=== PATIENT | male | born 1975 | race Caucasian/White ===

== ENCOUNTER → 2018-01-21 | Outpatient (CLI) | payer SELFPAY ==
[~2018-01-21] MED LIST: FLEXERIL5 MG PO; HYDROCODON-ACE1 EAC7 PO; IBUPROFEN600 MG PO; NAPROSYN500 MG PO; TYLENOL WITH C1 EACH PO
== END | disposition home or self-care (01) ==
LOC: CDC 10:20
DX: Z01.810 Encounter for preprocedural cardiovascular examination (principal); K40.91 Unilateral inguinal hernia, without obstruction or gangrene, recurrent
CPT/HCPCS: 93000

== ENCOUNTER 2018-02-01 09:26 | Day surgery (SDC) | payer OTHER ==
[~2018-02-01] VITALS: Ht 177.8 cm; Wt 79.1 kg
[~2018-02-01 09:26] MED LIST changes: +MOTRIN IB200 MG PO; +TYLENOL EXTRA500 MG PO
[2018-02-01 10:27] VITALS: BP 119/79
[2018-02-01 13:05] LABS: BENZODIAZEPINES, URINE SCREEN Negative (200 ng/mL)
[2018-02-01 16:50] VITALS: BP 129/80
[2018-02-01] MEDS ORDERED: HYDROCODON-ACE1 EAC7 PO (17:15)
[2018-02-01 17:43] VITALS: BP 130/80
== END 2018-02-01 17:47 | disposition home or self-care (01) ==
LOC: SDC 09:26
PROVIDERS: Student in an Organized Health Care Education/Training Program
PROC: 0YU54JZ Supplement Right Inguinal Region with Synthetic Substitute, Percutaneous Endoscopic Approach (ICD-10-PCS; principal; 2018-02-01)
DX: K40.91 Unilateral inguinal hernia, without obstruction or gangrene, recurrent (principal); B18.2 Chronic viral hepatitis C; E78.5 Hyperlipidemia, unspecified; R56.9 Unspecified convulsions; F32.9 Major depressive disorder, single episode, unspecified; F19.21 Other psychoactive substance dependence, in remission; Z72.0 Tobacco use; Z82.49 Family history of ischemic heart disease and other diseases of the circulatory system; Z81.8 Family history of other mental and behavioral disorders; Z83.1 Family history of other infectious and parasitic diseases
CPT/HCPCS: 80306 90; C1781; J0131; J0690; J1100; J1170; J1885; J2250; J2405; J2710; J2795; J3010; S0020

== ENCOUNTER 2018-02-15 13:40 | Inpatient (IN) | payer OTHER ==
[~2018-02-15] VITALS: Ht 177.8 cm; Wt 75.9 kg
[2018-02-15 14:10] LABS: HEMOGLOBIN 16.9 G/DL (12.5-16.6); MCH 29.4 PG (29.0-34.0); MCHC 34.5 G/DL (30.0-36.0); MCV 85.2 FL (86-99); RBC DIS.WIDTH-CV 13.2 % (11.8-14.6); RBC DIS.WIDTH-SD 40.8 % (39-53); RED BLOOD COUNT 5.75 M/uL (4.00-5.50); WHITE BLOOD COUNT 11.4 K/uL (4.1-10.2)
[2018-02-15 14:13] LABS: PLATELET COUNT 331 K/uL (156-360)
[2018-02-15 14:21] LABS: CHLORIDE 95 mEq/L (99-109); SODIUM 134 mEq/L (136-147)
[2018-02-15 14:23] LABS: GLUCOSE 169 mg/dL (70-99)
[2018-02-15 14:27] LABS: CREATININE 1.5 mg/dL (0.6-1.3); GFR ESTIMATE (CALCULATED) 54 mL/min/ (58.99-99999)
[2018-02-15 14:28] LABS: UREA NITROGEN (BUN) 14 mg/dL (9-23)
[2018-02-15 14:54] LABS: ABS NEUTROPHIL COUNT 9.3; ATYPICAL LYMPHOCYTE 1.8 %; BAND NEUTROPHILS 58.4 % (0-8.0); EOSINOPHIL ABS CT 0; METAMYELOCYTES 2.6 %; MONOCYTES 6.2 % (0-9.0); PLAT.SUFFICIENCY ADEQUATE; SMUDGE CELLS 2.7
[2018-02-15 15:39] LABS: APPEARANCE SL.HAZY ((CLEAR)); BILIRUBIN MODERATE; BLOOD NEGATIVE; COLOR AMBER ((YELLOW)); GLUCOSE (STRIP) NEGATIVE; KETONES 20; LEUKOCYTES NEGATIVE; NITRITE NEGATIVE; PROTEIN (STRIP) 100; SPECIFIC GRAVITY 1.032 (1.000-1.030)
[2018-02-15 15:48] LABS: TOTAL PROTEIN 7.3 g/dL (6.4-8.3)
[2018-02-15 15:50] LABS: TOTAL BILIRUBIN 1.2 mg/dL (0.0-1.0)
[2018-02-15 15:51] LABS: ALKALINE PHOSPHATASE 147 IU/L (3-129)
[2018-02-15 15:53] LABS: AST (GOT) 19 IU/L (2-34)
[2018-02-15 15:54] LABS: ALT (GPT) 30 IU/L (3-49); DIRECT BILIRUBIN 0.6 mg/dL (0.0-0.3)
[2018-02-15 16:00] LABS: ICTOTEST NEGATIVE
[2018-02-15 16:10] LABS: BACTERIA NONE SEEN /HPF; EPITHELIAL CELLS RARE /HPF; MUCUS 3+ /LPF; RED BLOOD CELLS NONE SEEN /HPF (0-5); UCUL ADDED? NO; WHITE BLOOD CELLS NONE SEEN /HPF (0-5)
[2018-02-15 16:11] LABS: LIPASE < 1 U/L (1.0-51.0)
[2018-02-16 00:51] VITALS: BP 113/69
[2018-02-16 04:37] VITALS: BP 128/79
[2018-02-16 07:00] LABS: MCH 29.2 PG (29.0-34.0); MCHC 33.7 G/DL (30.0-36.0); MCV 86.5 FL (86-99); PLATELET COUNT 280 K/uL (156-360); RBC DIS.WIDTH-CV 13.5 % (11.8-14.6); RBC DIS.WIDTH-SD 42.8 % (39-53); RED BLOOD COUNT 4.97 M/uL (4.00-5.50); WHITE BLOOD COUNT 10.7 K/uL (4.1-10.2)
[2018-02-16 07:05] LABS: HEMOGLOBIN 14.5 G/DL (12.5-16.6)
[2018-02-16 07:16] LABS: CHLORIDE 102 MEQ/L (99-109); CREATININE 1.3 MG/DL (0.6-1.3); GFR ESTIMATE (CALCULATED) > 59 mL/min/ (58.99-99999); SODIUM 137 MEQ/L (136-147); UREA NITROGEN (BUN) 18 mg/dL (9-23)
[2018-02-16 07:17] LABS: GLUCOSE 93 mg/dL (70-99); POTASSIUM 4.9 MEQ/L (3.7-5.4)
[2018-02-16 08:35] VITALS: BP 134/73
[2018-02-16 09:56] LABS: MAGNESIUM 1.3 mg/dl (1.3-2.7); PHOSPHORUS 4.2 mg/dL (2.5-4.9); TRIGLYCERIDES 51 MG/DL (Normal: <150)
[2018-02-16 12:20] VITALS: BP 127/80
[2018-02-16 15:58] VITALS: BP 130/70
[2018-02-16 21:10] VITALS: BP 135/82
[2018-02-17] VITALS (7 sets, daily range): BP systolic 135–164; BP diastolic 88–94
[2018-02-17 05:51] LABS: HEMATOCRIT 42.4 % (38.0-50.0); HEMOGLOBIN 13.9 G/DL (12.5-16.6); MCH 28.1 PG (29.0-34.0); MCHC 32.8 G/DL (30.0-36.0); MCV 85.7 FL (86-99); PLATELET COUNT 312 K/uL (156-360); RBC DIS.WIDTH-CV 13.4 % (11.8-14.6); RED BLOOD COUNT 4.95 M/uL (4.00-5.50); WHITE BLOOD COUNT 11.4 K/uL (4.1-10.2)
[2018-02-17 06:11] LABS: ALBUMIN 2.9 G/DL (3.2-4.8); ALKALINE PHOSPHATASE 79 IU/L (3-129); ALT (GPT) 18 IU/L (3-49); AST (GOT) 16 IU/L (2-34); CHLORIDE 102 MEQ/L (99-109); CREATININE 0.9 MG/DL (0.6-1.3); DIRECT BILIRUBIN 0.1 mg/dL (0.0-0.3); GFR ESTIMATE (CALCULATED) > 59 mL/min/ (58.99-99999); GLUCOSE 122 mg/dL (70-99); SODIUM 137 MEQ/L (136-147); TOTAL BILIRUBIN 0.5 MG/DL (0.0-1.0); TOTAL PROTEIN 5.5 G/DL (6.4-8.3); UREA NITROGEN (BUN) 20 mg/dL (9-23)
[2018-02-17 06:33] LABS: MAGNESIUM 2.5 mg/dl (1.3-2.7); PHOSPHORUS 2.3 mg/dL (2.5-4.9); POTASSIUM 3.9 MEQ/L (3.7-5.4); PREALBUMIN < 10.0 mg/dL (10-40)
[2018-02-17 06:44] LABS: ABS NEUTROPHIL COUNT 9.9; ATYPICAL LYMPHOCYTE 0.9 %; BAND NEUTROPHILS 43.5 % (0-8.0); BASOPHILS 0.9 %; EOSINOPHIL ABS CT 0; LYMPHOCYTES 9.5 % (15.0-45.0); MONOCYTES 1.7 % (0-9.0); PLAT.SUFFICIENCY DECREASED
[2018-02-17 06:57] LABS: SEG.NEUTROPHILS 43.5 % (46.0-76.0)
[2018-02-18 04:27] VITALS: BP 155/95
[2018-02-18 05:59] LABS: HEMATOCRIT 38.2 % (38.0-50.0); HEMOGLOBIN 12.6 G/DL (12.5-16.6); MCH 28.6 PG (29.0-34.0); MCV 86.6 FL (86-99); PLATELET COUNT 237 K/uL (156-360); RBC DIS.WIDTH-CV 13.7 % (11.8-14.6); RED BLOOD COUNT 4.41 M/uL (4.00-5.50); WHITE BLOOD COUNT 10.1 K/uL (4.1-10.2)
[2018-02-18 06:31] LABS: CHLORIDE 108 MEQ/L (99-109); CREATININE 0.8 MG/DL (0.6-1.3); GFR ESTIMATE (CALCULATED) > 59 mL/min/ (58.99-99999); GLUCOSE 109 mg/dL (70-99); PHOSPHORUS 2.2 mg/dL (2.5-4.9); SODIUM 140 MEQ/L (136-147); UREA NITROGEN (BUN) 16 mg/dL (9-23)
[2018-02-18 06:32] LABS: MAGNESIUM 1.8 mg/dl (1.3-2.7)
[2018-02-18 07:10] VITALS: BP 152/79
[2018-02-18 09:48] LABS: C DIFF TOXIN POSITIVE (NEGATIVE)
[2018-02-18 11:12] VITALS: BP 157/95
[2018-02-18 16:41] VITALS: BP 151/98
[2018-02-18 20:45] VITALS: BP 130/76
[2018-02-19 00:30] VITALS: BP 128/72
[2018-02-19 04:40] VITALS: BP 140/74
[2018-02-19 06:08] LABS: CHLORIDE 106 MEQ/L (99-109); CREATININE 0.6 MG/DL (0.6-1.3); GFR ESTIMATE (CALCULATED) > 59 mL/min/ (58.99-99999); GLUCOSE 105 mg/dL (70-99); MAGNESIUM 1.7 mg/dl (1.3-2.7); PHOSPHORUS 3.1 mg/dL (2.5-4.9); POTASSIUM 3.5 MEQ/L (3.7-5.4); SODIUM 139 MEQ/L (136-147); UREA NITROGEN (BUN) 10 mg/dL (9-23)
[2018-02-19 08:35] VITALS: BP 144/87
[2018-02-19 11:41] VITALS: BP 150/82
[2018-02-19 16:50] VITALS: BP 164/80
[2018-02-19 20:40] VITALS: BP 128/82
[2018-02-20 00:25] VITALS: BP 132/78
[2018-02-20 04:05] VITALS: BP 136/78
[2018-02-20 07:30] VITALS: BP 138/67
[2018-02-20 08:48] LABS: BASOPHIL (%) 0.5 % (0-1); BASOPHIL COUNT 0.1 K/uL (0-0.1); EOSINOPHIL (%) 0.7 % (0-5); EOSINOPHIL COUNT 0.1 K/uL (0-0.3); HEMATOCRIT 39.9 % (38.0-50.0); HEMOGLOBIN 12.8 G/DL (12.5-16.6); IMMATURE GRANULOCYTE (%) 3.7 % (0.0-0.7); LYMPHOCYTE (%) 8.7 % (15-42); LYMPHOCYTE COUNT 1.4 K/uL (1.0-2.8); MCH 27.8 PG (29.0-34.0); MCHC 32.1 G/DL (30.0-36.0); MCV 86.7 FL (86-99); MONOCYTE (%) 9.8 % (3-12); MONOCYTE COUNT 1.5 K/uL (0-0.8); NEUTROPHIL (%) 76.6 % (45-76); PLATELET COUNT 222 K/uL (156-360); RBC DIS.WIDTH-CV 13.6 % (11.8-14.6); RBC DIS.WIDTH-SD 43.3 % (39-53); WHITE BLOOD COUNT 15.7 K/uL (4.1-10.2)
[2018-02-20 09:52] LABS: CHLORIDE 104 MEQ/L (99-109); CREATININE 0.7 MG/DL (0.6-1.3); GFR ESTIMATE (CALCULATED) > 59 mL/min/ (58.99-99999); GLUCOSE 95 mg/dL (70-99); PHOSPHORUS 3.1 mg/dL (2.5-4.9); POTASSIUM 3.4 MEQ/L (3.7-5.4); SODIUM 136 MEQ/L (136-147); UREA NITROGEN (BUN) 9 mg/dL (9-23)
[2018-02-20 10:04] LABS: MAGNESIUM 2.1 mg/dL (1.3-2.7)
[2018-02-20 12:52] VITALS: BP 135/64
[2018-02-20 16:22] VITALS: BP 129/56
[2018-02-20 20:53] VITALS: BP 138/60
[2018-02-21] VITALS (7 sets, daily range): BP systolic 136–156; BP diastolic 68–97
[2018-02-21 05:39] LABS: HEMATOCRIT 37.5 % (38.0-50.0); HEMOGLOBIN 12.3 G/DL (12.5-16.6); MCH 28.1 PG (29.0-34.0); MCHC 32.8 G/DL (30.0-36.0); MCV 85.8 FL (86-99); PLATELET COUNT 221 K/uL (156-360); RBC DIS.WIDTH-CV 13.6 % (11.8-14.6); RBC DIS.WIDTH-SD 42.6 % (39-53); RED BLOOD COUNT 4.37 M/uL (4.00-5.50); WHITE BLOOD COUNT 16.7 K/uL (4.1-10.2)
[2018-02-21 06:35] LABS: HEMATOCRIT 37.5 % (38.0-50.0); HEMOGLOBIN 12.4 G/DL (12.5-16.6); MCH 28.5 PG (29.0-34.0); MCHC 33.1 G/DL (30.0-36.0); MCV 86.2 FL (86-99); NRBC (%) 0.2 /100 WBC (0-0); PLATELET COUNT 230 K/uL (156-360); RBC DIS.WIDTH-CV 13.7 % (11.8-14.6); RBC DIS.WIDTH-SD 43.2 % (39-53); RED BLOOD COUNT 4.35 M/uL (4.00-5.50); WHITE BLOOD COUNT 16.5 K/uL (4.1-10.2)
[2018-02-21 06:52] LABS: ANISOCYTOSIS 1+; EOSINOPHIL ABS CT 0; LYMPHOCYTES 2.6 % (15.0-45.0); METAMYELOCYTES 1.7 %; MONOCYTES 6.1 % (0-9.0); PLAT.SUFFICIENCY ADEQUATE
[2018-02-21 06:54] LABS: BAND NEUTROPHILS 2.6 % (0-8.0)
[2018-02-21 06:59] LABS: BASOPHIL (%) 0.8 % (0-1); BASOPHIL COUNT 0.1 K/uL (0-0.1); EOSINOPHIL (%) 0.9 % (0-5); EOSINOPHIL COUNT 0.2 K/uL (0-0.3); IMMATURE GRANULOCYTE (%) 4.7 % (0.0-0.7); LYMPHOCYTE (%) 12.5 % (15-42); LYMPHOCYTE COUNT 2.1 K/uL (1.0-2.8); MONOCYTE (%) 9.5 % (3-12); MONOCYTE COUNT 1.6 K/uL (0-0.8); NEUTROPHIL (%) 71.6 % (45-76); NEUTROPHIL COUNT 11.8 K/uL (1.8-6.4)
[2018-02-22 03:48] VITALS: BP 136/72
[2018-02-22 06:04] LABS: HEMATOCRIT 37.8 % (38.0-50.0); HEMOGLOBIN 12.5 G/DL (12.5-16.6); MCH 28.2 PG (29.0-34.0); MCHC 33.1 G/DL (30.0-36.0); MCV 85.1 FL (86-99); PLATELET COUNT 269 K/uL (156-360); RBC DIS.WIDTH-CV 13.4 % (11.8-14.6); RBC DIS.WIDTH-SD 41.9 % (39-53); RED BLOOD COUNT 4.44 M/uL (4.00-5.50); WHITE BLOOD COUNT 15.7 K/uL (4.1-10.2)
[2018-02-22 07:18] LABS: CHLORIDE 103 MEQ/L (99-109); CREATININE 0.8 MG/DL (0.6-1.3); GFR ESTIMATE (CALCULATED) > 59 mL/min/ (58.99-99999); GLUCOSE 112 mg/dL (70-99); SODIUM 138 MEQ/L (136-147); UREA NITROGEN (BUN) 7 mg/dL (9-23)
[2018-02-22 07:30] VITALS: BP 139/74
[2018-02-22 15:52] VITALS: BP 115/71
[2018-02-22 17:05] VITALS: BP 117/74
[2018-02-22 20:17] VITALS: BP 144/75
[2018-02-22 23:38] VITALS: BP 132/81
[2018-02-23 04:33] VITALS: BP 144/83
[2018-02-23 05:24] LABS: HEMATOCRIT 38.3 % (38.0-50.0); HEMOGLOBIN 12.6 G/DL (12.5-16.6); MCH 28.5 PG (29.0-34.0); MCHC 32.9 G/DL (30.0-36.0); MCV 86.7 FL (86-99); PLATELET COUNT 286 K/uL (156-360); RBC DIS.WIDTH-CV 13.6 % (11.8-14.6); RBC DIS.WIDTH-SD 43.3 % (39-53); RED BLOOD COUNT 4.42 M/uL (4.00-5.50); WHITE BLOOD COUNT 14.5 K/uL (4.1-10.2)
[2018-02-23 05:45] LABS: CHLORIDE 106 MEQ/L (99-109); CREATININE 0.8 MG/DL (0.6-1.3); GFR ESTIMATE (CALCULATED) > 59 mL/min/ (58.99-99999); GLUCOSE 85 mg/dL (70-99); SODIUM 140 MEQ/L (136-147); UREA NITROGEN (BUN) 7 mg/dL (9-23)
[2018-02-23 08:33] VITALS: BP 140/76
[2018-02-23 15:36] VITALS: BP 122/72
[2018-02-23 23:28] VITALS: BP 140/70
[2018-02-24 04:14] VITALS: BP 110/72
[2018-02-24 05:24] LABS: HEMATOCRIT 36.5 % (38.0-50.0); HEMOGLOBIN 11.9 G/DL (12.5-16.6); MCH 28.6 PG (29.0-34.0); MCHC 32.6 G/DL (30.0-36.0); MCV 87.7 FL (86-99); PLATELET COUNT 343 K/uL (156-360); RBC DIS.WIDTH-CV 13.8 % (11.8-14.6); RBC DIS.WIDTH-SD 44.7 % (39-53); RED BLOOD COUNT 4.16 M/uL (4.00-5.50); WHITE BLOOD COUNT 13.8 K/uL (4.1-10.2)
[2018-02-24 08:15] VITALS: BP 142/72
[2018-02-24] MEDS ORDERED: PERCOCET 5/31 TABLET PO (11:01)
[2018-02-24] MEDS ORDERED: COLACE100 MG PO (11:02)
[2018-02-24] MEDS ORDERED: VANCOCIN HCL125 MG PO (11:05)
[2018-02-24] MEDS ORDERED: BACTRIM,SEPT1 TABLET PO (11:05)
== END 2018-02-24 13:00 | disposition home or self-care (01) | DRG 329 ==
LOC: EME 13:40 → 4EAST 18:43 → EDOF 18:43 → ENRESERV 18:44 → EDOF 21:42 → ENRESERV 21:42 → EDOF 21:42 → ENRESERV 22:00 → 4EAST 02-16 00:41 → CANRESERV 02-22 12:04 → ENRESERV 02-22 12:04 → 3EAST 02-22 16:35
PROVIDERS: Emergency Medicine; Physician Assistant; Student in an Organized Health Care Education/Training Program; Surgery
PROC: 0DB80ZZ Excision of Small Intestine, Open Approach (ICD-10-PCS; principal; 2018-02-15)
PROC: 0WPF0JZ Removal of Synthetic Substitute from Abdominal Wall, Open Approach (ICD-10-PCS; principal; 2018-02-15)
PROC: 3E0336Z Introduction of Nutritional Substance into Peripheral Vein, Percutaneous Approach (ICD-10-PCS; principal; 2018-02-15)
PROC: 0DQ80ZZ Repair Small Intestine, Open Approach (ICD-10-PCS; principal; 2018-02-15)
DX: K56.609 Unspecified intestinal obstruction, unspecified as to partial versus complete obstruction (principal); E44.0 Moderate protein-calorie malnutrition; A04.72 Enterocolitis due to Clostridium difficile, not specified as recurrent; Z98.890 Other specified postprocedural states; F17.210 Nicotine dependence, cigarettes, uncomplicated; F12.90 Cannabis use, unspecified, uncomplicated; K63.1 Perforation of intestine (nontraumatic); K65.9 Peritonitis, unspecified; K56.7 Ileus, unspecified; K40.90 Unilateral inguinal hernia, without obstruction or gangrene, not specified as recurrent; K66.8 Other specified disorders of peritoneum; R19.7 Diarrhea, unspecified; D72.829 Elevated white blood cell count, unspecified; R00.0 Tachycardia, unspecified
CPT/HCPCS: 71045; 74176; 74177; 76937; 80048; 80053; 80076; 81003; 82248; 82330; 83605; 83690; 83735; 84100; 84134; 84478; 84630 90; 85025; 85025 91; 85027; 86850; 86900; 86901; 86920; 87070; 87075; 87077; 87106; 87186; 87205; 87493; 87506; 88307; 97530 GP; 99281; 99285; J0131; J0330; J1170; J1650; J1885; J2250; J2405; J2543; J2710; J3010; J3475; J3480; J7030; J7040; J7050; S0030

== ENCOUNTER 2018-04-23 17:23 | Emergency (ER) | payer OTHER ==
[~2018-04-23] VITALS: Ht 177.8 cm; Wt 76.0 kg
[~2018-04-23 17:23] MED LIST changes: +BACTRIM,SEPT1 TABLET PO; +COLACE100 MG PO; +PERCOCET 5/31 TABLET PO; +VANCOCIN HCL125 MG PO
[2018-04-23 17:27] VITALS: BP 115/83
[2018-04-23] MEDS ORDERED: NORCO 5/3251 TABLET PO (19:00)
== END 2018-04-23 19:16 | disposition home or self-care (01) ==
LOC: EME 17:23
DX: S20.222A Contusion of left back wall of thorax, initial encounter (principal); Y00.XXXA Assault by blunt object, initial encounter
CPT/HCPCS: 71046; 99281; 99284